=== PATIENT | female | born 1945 ===

== ENCOUNTER 2025-08-05 06:00 | Day surgery (SDC) | payer OTHER ==
[2025-07-29 13:54] VITALS: BP 148/77
[~2025-08-05] VITALS: Ht 154.9 cm; Wt 50.8 kg
[~2025-08-05 06:00] MED LIST: ALLEGRA ALLERGY60 MG; ATIVAN1 M1 PO; ATORVASTATIN CA10 MG PO; CALCI; COZAAR100 MG PO; LEVOTHYROXINE50 MC1 PO; OMEGA-31000 MG; [UNRECOGNIZED DRUG - OTHER]
[2025-08-05] MEDS ORDERED: CEFAZOLIN SODIUM 1,000 MG VIAL IV ONE (08:30)
[2025-08-05] MEDS ORDERED: GENTAMICIN SULFATE 40 MG/ML VIAL IR ONE (08:30)
[2025-08-05] MEDS ORDERED: LIDOCAINE HCL 1%/EPINEPHRINE 20ML VIAL IJ ONE (08:30)
[2025-08-05] MEDS ORDERED: CHLORHEXIDINE GLUCONATE 120 ML BOTTLE TOP ONE (08:30)
[2025-08-05] MEDS ORDERED: MACROBID 100 M100 MG PO (11:06)
[2025-08-05] MEDS ORDERED: TRAM1TAB98 PO (11:06)
== END 2025-08-05 12:55 | disposition home or self-care (01) ==
LOC: O/R 06:00 → SURH 06:00 → CIR.AMB 06:00 → EDSTATUS 10:15 → SURH 10:15 → O/R 12:55 → CIR.AMB 12:55
PROVIDERS: ATTEND Obstetrics & Gynecology Gynecology
DX: N81.5 Vaginal enterocele (principal); N81.82 Incompetence or weakening of pubocervical tissue; N81.83 Incompetence or weakening of rectovaginal tissue